=== PATIENT | male | born 1975 | race Caucasian/White ===

== ENCOUNTER 2017-11-30 03:25 | Emergency (ER) | payer OTHER ==
[2017-11-30] MEDS ORDERED: CHLORHEXIDINE GLUCONATE 4 % 15 ML UD TOP ONE (03:35)
[2017-11-30] MEDS ORDERED: LIDOCAINE 1% 50 ML VIAL INJ ONE (03:42)
[2017-11-30] MEDS ORDERED: TETANUS,DIPHTHERIA,PERTUSSIS 1 EA SYG IM ONE (03:50)
[2017-11-30 04:01] VITALS: BP 141/95; TEMP 97.8
--- NOTE | 2017-11-30 04:07 | ED.PDOC ---
History of Present Illness - General Chief Complaint: Laceration Stated Complaint: lace to left leg Time Seen by Provider: 11/30/17 04:04 Source: patient Exam Limitations: no limitations - History of Present Illness Initial Comments: LACERATION TO THE LEFT PRE-TIBIAL AREA. WAS WALKING AND INJURED WITH A SHEET METAL, NOW SUSTAINS A LAC TO THE LEFT LEG. Timing/Duration: just prior to arrival Location: extremities Improving Factors: nothing Worsening Factors: nothing Associated Symptoms: denies symptoms Allergies/Adverse Reactions: Allergies Amoxicillin Allergy (Verified 08/25/15 15:44) Home Medications: Ambulatory Orders Lionel/Poly/Hc Otic Susp [Cortisporin Otic Susp] 4 drop BOTH_EARS Q6H #10 days 09/02 Azithromycin [Zithromax Z-Capo] 1 ea PO DAILY #1 pack 02/14/16 Lionel/Poly/Hc Otic Susp [Cortisporin Otic Susp] 4 drop BOTH_EARS Q6HR 10 Days drops 02/14/16 Sulfa/Trimeth 800/160 (Ds) Tab [Bactrim DS] 1 tablet PO DAILY #20 tablet Tramadol HCl 50 mg PO Q6HRS #20 tab 11/30/17 Review of Systems - Review of Systems Constitutional: States: no symptoms reported EENTM: States: no symptoms reported Respiratory: States: no symptoms reported Cardiology: States: no symptoms reported Gastrointestinal/Abdominal: States: no symptoms reported Genitourinary: States: no symptoms reported Musculoskeletal: States: other - LACERATION Skin: States: lesions Neurological: States: no symptoms reported Endocrine: States: no symptoms reported All other Systems: Reviewed and Negative Past Medical History (General) - Patient Medical History Hx Seizures: No Hx Stroke: No Hx Dementia: No Hx Asthma: No Hx of COPD: No Hx Cardiac Disorders: No Hx Congestive Heart Failure: No Hx Pacemaker: No Hx Hypertension: Yes Hx Thyroid Disease: No Hx Diabetes: No Hx Gastroesophageal Reflux: No Hx Renal Disease: No Hx Cancer: No Hx of HIV: No Hx MRSA: No Hx Other PMH: Yes - RIGHT PROSTHETIC EYE - Vaccination History Hx Tetanus, Diphtheria Vaccination: No Hx Influenza Vaccination: No Hx Pneumococcal Vaccination: No - Social History Hx Tobacco Use: No Hx Alcohol Use: Yes Hx Substance Use: No Hx Depression: No - Female History Patient is a Female of Child Bearing Age (10 -59 yrs old): No Patient : No Family Medical History - Family History Father Family History: Unknown Living Status: Unknown Physical Exam - Physical Exam General Appearance: Alert, Well Developed, Well Hydrated, Well Nourished Eyes, Ears, Nose, Throat Exam: normal ENT inspection Neck: non-tender, full range of motion, supple Cardiovascular/Chest: normal peripheral pulses, regular rate, rhythm, no edema, no gallop, no JVD Respiratory: chest non-tender, lungs clear, normal breath sounds, no respiratory distress, no accessory muscle use Gastrointestinal/Abdominal: normal bowel sounds, non tender, soft, no organomegaly Back Exam: normal inspection Extremity: other - DEEP LACERATION TO THE LEFT PRE TIBIAL AREA, 10 CM Neurologic: no motor/sensory deficits, alert, normal mood/affect, oriented x 3 Skin Problem Location: lower extremities Lymphatic: no adenopathy Procedures - Laceration/Wound Repair Left Lower Anterior Knee Wound Length (cm): 12 Wound's Depth, Shape: into muscle, irregular Wound Explored: no foreign body removed Irrigated w/ Saline (cc's): 1,000 Betadine Prep?: No - HIBICLENS Anesthesia: 1% Lidocaine Volume Anesthetic (cc's): 10 Wound Debrided: moderate Wound Repaired With: sutures Suture Size/Type: 3:0, nylon Number of Sutures: 10 Layer Closure?: Yes Deep Layer Suture Size/Type: 3:0, vicryl Number Deep Layer Sutures: 5 Sterile Dressing Applied?: Yes Splint Applied?: No Departure - Departure Clinical Impression: Lower leg laceration with complication Qualifiers: Encounter type: initial encounter Laterality: left Qualified Code(s): S81.812A - Laceration without foreign body, left lower leg, initial encounter Time of Disposition: 04:14 Disposition: Discharge to Home or Self Care Condition: Fair Departure Forms: ED Discharge - Pt. Copy, Patient Portal Self Enrollment Instructions: DI for Laceration Repair, How to Care for a Laceration After Repair Diet: resume usual diet Referrals: Eduardo Ward MD [Family Provider] - 1-2 Weeks Prescriptions: Tramadol HCl 50 mg PO Q6HRS #20 tab Sulfa/Trimeth 800/160 (Ds) Tab [Bactrim DS] 1 tablet PO DAILY #20 tablet Home Medications: Ambulatory Orders Lionel/Poly/Hc Otic Susp [Cortisporin Otic Susp] 4 drop BOTH_EARS Q6H #10 days 09/02 Azithromycin [Zithromax Z-Capo] 1 ea PO DAILY #1 pack 02/14/16 Lionel/Poly/Hc Otic Susp [Cortisporin Otic Susp] 4 drop BOTH_EARS Q6HR 10 Days drops 02/14/16 Sulfa/Trimeth 800/160 (Ds) Tab [Bactrim DS] 1 tablet PO DAILY #20 tablet Tramadol HCl 50 mg PO Q6HRS #20 tab 11/30/17
[2017-11-30] MEDS ORDERED: NEOMYCIN-BACITRACIN-POLYMYXIN 0.9 GM UD TOP ONE (04:12)
[2017-11-30] MEDS ORDERED: IBUPROFEN 200 MG TAB ONE (04:21)
[2017-11-30] MEDS ORDERED: IBUPROFEN 200 MG TAB PO ONE (04:25)
[2017-11-30 04:27] VITALS: O2SAT 97
== END 2017-11-30 04:27 | disposition home or self-care (01) ==
LOC: ER 03:25
DX: S81.812A Laceration without foreign body, left lower leg, initial encounter (principal); I10 Essential (primary) hypertension; Z23 Encounter for immunization; W45.8XXA Other foreign body or object entering through skin, initial encounter; Y93.01 Activity, walking, marching and hiking; Z88.0 Allergy status to penicillin; Y92.9 Unspecified place or not applicable

== ENCOUNTER 2019-11-23 18:53 | Emergency (ER) | payer OTHER ==
[2019-11-23] MEDS ORDERED: SODIUM CHLORIDE 0.9% (FLUSH) 10 ML SYG IV PRN (19:05)
[2019-11-23] MEDS ORDERED: SODIUM CHLORIDE 0.9% 1000ML 1,000 ML IVS ONE ×2 (19:06→19:33)
--- NOTE | 2019-11-23 19:10 | ED.PDOC ---
History of Present Illness - General Time Seen by Provider: 11/23/19 19:05 Source: patient - History of Present Illness Initial Comments: 43-year-old male with past medical history of rectal cancer on chemotherapy, methamphetamine abuse who is brought in by EMS from home for chief complaint of chest pain. Patient admits to ingesting and smoking methamphetamines last night but denies any use today. He reports he was having "spiritual conversations" w ith his daughter and her friend at home when he suddenly began having pain in his chest. Describes as "like someone is squeezing my heart with a vice transverse abdominal muscle surgeon," constant, 11/27 severity, unknown exacerbating factors, no medications taken for relief at home, was given nitroglycerin p.o. x3 via EMS in route but reports no relief. He additionally reports fevers, chills, cough, dyspnea, headache, sore throat, nausea with one episode of nonbloody nonbilious emesis this morning. EMS reported that patient appeared high on stimulant drugs upon their arrival. He was noted to be hypertensive and tachycardic. He had some nonspecific T wave changes on EKG in route. Patient seen by [facility] in [place]. The patient's last chemo treatment was 3 days ago. Allergies/Adverse Reactions: Allergies Amoxicillin Allergy (Verified 08/25/15 15:44) Home Medications: Ambulatory Orders Lionel/Poly/Hc Otic Susp [Cortisporin Otic Susp] 4 drop BOTH_EARS Q6H #10 days 08/25/15 Azithromycin [Zithromax Z-Capo] 1 ea PO DAILY #1 pack 02/14/16 Lionel/Poly/Hc Otic Susp [Cortisporin Otic Susp] 4 drop BOTH_EARS Q6HR 10 Days drops 02/14/16 Sulfa/Trimeth 800/160 (Ds) Tab [Bactrim DS] 1 tablet PO DAILY #20 tablet 11/30/17 Tramadol HCl 50 mg PO Q6HRS #20 tab 11/30/17 Review of Systems - Review of Systems Review of Systems: 11/23/19 19:10 as per HPI All other Systems: Reviewed and Negative Past Medical History (General) - Patient Medical History Hx Seizures: No Hx Stroke: No Hx Dementia: No Hx Asthma: No Hx of COPD: No Hx Cardiac Disorders: No Hx Congestive Heart Failure: No Hx Pacemaker: No Hx Hypertension: Yes Hx Thyroid Disease: No Hx Diabetes: No Hx Gastroesophageal Reflux: No Hx Renal Disease: No Hx Cancer: No Hx of HIV: No Hx MRSA: No - Vaccination History Hx Tetanus, Diphtheria Vaccination: No Hx Influenza Vaccination: No Hx Pneumococcal Vaccination: No - Social History Hx Tobacco Use: No Hx Alcohol Use: Yes Hx Substance Use: No Hx Depression: No - Female History Patient : No Family Medical History - Family History Father Family History: Unknown Living Status: Unknown Physical Exam - Physical Exam General Appearance: Alert, Anxious, Unkempt Eye Exam: right other - false eye, left abnormal pupil - moderately dilated and reactive to light Ears, Nose, Throat: hearing grossly normal, normal ENT inspection, normal pharynx Neck: non-tender, full range of motion, supple, normal inspection Respiratory: chest non-tender, lungs clear, normal breath sounds, no respiratory distress, no accessory muscle use Cardiovascular/Chest: normal peripheral pulses, no edema, no gallop, no JVD, no murmur, tachycardia Peripheral Pulses: radial,right: 2+, radial,left: 2+ Gastrointestinal/Abdominal: non tender, soft, no organomegaly Back Exam: normal inspection, no CVA tenderness Extremity: normal range of motion, non-tender, normal inspection, no pedal edema, no calf tenderness 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 Consider also ACS, pneumonia, COVID-19, sepsis, metastatic cancer, chemotherapy side effects, dehydration, metabolic derangement, other -Obtain cardiac and sepsis work-ups -2 L normal saline bolus 11/24/19 23:10 -I was informed by nursing staff that the patient signed out AGAINST MEDICAL ADVICE before his complete ED work-up could be done. He was also restless while in the ED and pulled out his IV numerous times. His ER cardiac work-up was pretty unremarkable. I suspect that his chest pain was largely due to his methamphetamine abuse. Onofre Hernandez MD Billing #[id number] 11/23/19 19:15 EKG STAT 11/23/19 19:25 STREP A SCREEN CULTURE Stat 11/23/19 19:55 BLOOD CULTURE Stat 11/23/19 20:45 EKG STAT Laboratory Results - last 24 hr 11/23/19 11/23/19 11/23/19 19:25 19:55 19:55 WBC 5.7 RBC 4.08 L Hgb 13.6 L Hct 38.4 L MCV 94.3 H MCH 33.4 H MCHC 35.4 RDW 12.8 Plt Count 175 MPV 7.2 L Absolute Neuts (auto) 4.20 Absolute Lymphs (auto) 1.10 Absolute Monos (auto) 0.20 Absolute Eos (auto) 0.10 Absolute Basos (auto) 0.10 Neutrophils % 74.3 Lymphocytes % 19.0 L Monocytes % 3.3 Eosinophils % 1.3 Basophils % 2.1 H PT 9.7 INR 0.98 PTT (SP) 24.5 D-Dimer, Quantitative 221.0 Sodium Potassium Chloride Carbon Dioxide Anion Gap BUN Creatinine BUN/Creatinine Ratio Random Glucose Serum Osmolality Lactic Acid Calcium Total Bilirubin AST ALT Alkaline Phosphatase Troponin I B-Natriuretic Peptide Serum Total Protein Albumin Globulin Albumin/Globulin Ratio Salicylates Acetaminophen Ethyl Alcohol Group A Strep Rapid Negative 11/23/19 11/23/19 11/23/19 19:55 19:55 19:55 WBC RBC Hgb Hct MCV MCH MCHC RDW Plt Count MPV Absolute Neuts (auto) Absolute Lymphs (auto) Absolute Monos (auto) Absolute Eos (auto) Absolute Basos (auto) Neutrophils % Lymphocytes % Monocytes % Eosinophils % Basophils % PT INR PTT (SP) D-Dimer, Quantitative Sodium 137 Potassium 4.2 Chloride 100 L Carbon Dioxide 27 Anion Gap 14.2 BUN 18 Creatinine 0.88 BUN/Creatinine Ratio 20.5 H Random Glucose 106 H Serum Osmolality 276.1 Lactic Acid 1.4 Calcium 9.4 Total Bilirubin 0.4 AST 17 ALT 15 Alkaline Phosphatase 69 Troponin I < 0.02 B-Natriuretic Peptide < 15.0 Serum Total Protein 7.1 Albumin 4.2 Globulin 2.9 Albumin/Globulin Ratio 1.4 Salicylates Acetaminophen Ethyl Alcohol Group A Strep Rapid 11/23/19 11/23/19 20:00 20:00 WBC RBC Hgb Hct MCV MCH MCHC RDW Plt Count MPV Absolute Neuts (auto) Absolute Lymphs (auto) Absolute Monos (auto) Absolute Eos (auto) Absolute Basos (auto) Neutrophils % Lymphocytes % Monocytes % Eosinophils % Basophils % PT INR PTT (SP) D-Dimer, Quantitative Sodium Potassium Chloride Carbon Dioxide Anion Gap BUN Creatinine BUN/Creatinine Ratio Random Glucose Serum Osmolality Lactic Acid Calcium Total Bilirubin AST ALT Alkaline Phosphatase Troponin I B-Natriuretic Peptide Serum Total Protein Albumin Globulin Albumin/Globulin Ratio Salicylates < 4.0 Acetaminophen < 10.0 L Ethyl Alcohol < 5.40 Group A Strep Rapid - EKG/XRAY/CT EKG: Sinus, Tachy - Heart rate 120, no ST elevations, Q waves noted in inferior leads indicative of possible old MD, axis normal, intervals normal, no prior EKG for comparison. XRAY: chest - no acute processes per my read Departure - Departure Clinical Impression: Methamphetamine abuse Chest pain Qualifiers: Chest pain type: unspecified Qualified Code(s): R07.9 - Chest pain, unspecified Time of Disposition: 23:00 Disposition: Left Against Medical Advice Condition: Fair Departure Forms: ED Discharge - Pt. Copy, Patient Portal Self Enrollment Instructions: DI for Chest Pain Diet: low salt diet Home Medications: Ambulatory Orders Lionel/Poly/Hc Otic Susp [Cortisporin Otic Susp] 4 drop BOTH_EARS Q6H #10 days 08/25/15 Azithromycin [Zithromax Z-Capo] 1 ea PO DAILY #1 pack 02/14/16 Lionel/Poly/Hc Otic Susp [Cortisporin Otic Susp] 4 drop BOTH_EARS Q6HR 10 Days drops 02/14/16 Sulfa/Trimeth 800/160 (Ds) Tab [Bactrim DS] 1 tablet PO DAILY #20 tablet 11/30/17 Tramadol HCl 50 mg PO Q6HRS #20 tab 11/30/17
[2019-11-23 19:19] VITALS: TEMP 97.9
--- NOTE | 2019-11-23 19:42 | RAD ---
EXAM: Chest,1 View CLINICAL INDICATION: 43-year-old male with chest pain. TECHNIQUE: Single view, AP portable chest was obtained. COMPARISON: None. FINDINGS: Unremarkable cardiac and mediastinal silhouette. Heart size is normal. LEFT chest wall port catheter tip terminates at the SVC RIGHT atrial junction. Lungs are clear without focal opacity, pneumothorax or pleural effusions. The visualized bones are within normal limits. IMPRESSION: No acute cardiopulmonary abnormalities. Electronically signed by: Laura Pond MD 11/23/2019 7:40 PM CDT
[2019-11-23 20:22] VITALS: BP 158/98; O2SAT 95
== END 2019-11-23 20:57 | disposition left against medical advice (07) ==
LOC: ER 18:53
DX: R07.9 Chest pain, unspecified (principal); F15.10 Other stimulant abuse, uncomplicated; R00.0 Tachycardia, unspecified; I10 Essential (primary) hypertension; C20 Malignant neoplasm of rectum; Z53.29 Procedure and treatment not carried out because of patient's decision for other reasons; Z79.899 Other long term (current) drug therapy; Z88.1 Allergy status to other antibiotic agents; Z92.21 Personal history of antineoplastic chemotherapy
CPT/HCPCS: 36415; 71045; 80053; 80320; 80329; 83605; 83880; 84484; 85025; 85379; 85610; 85730; 87040; 87070; 87880; 93005; J7030

== ENCOUNTER 2019-12-04 03:40 | Emergency (ER) | payer OTHER ==
--- NOTE | 2019-12-04 04:30 | ED.PDOC ---
History of Present Illness - General Chief Complaint: Behavioral / Psych Stated Complaint: medical clearance Time Seen by Provider: 12/04/19 04:02 Source: patient Exam Limitations: no limitations - History of Present Illness Initial Comments: The patient is a 43-year-old male presented emergency room in police custody secondary to bizarre behavior. The patient has a history of rectal cancer and is undergone seven months of chemotherapy. Denies any suicide attempts in the past. He reports that he has been sleeping adequately. Over the last week he reports that he has been talking out loud to [place] and has felt better than he has in the last year. He reports that his daughter had a suicide attempt a couple of weeks ago by cutting her wrist. She is apparently doing okay now. The officer that brought a man is apparently a friend and he has had several months of bizarre behavior including being convinced there was someone in his attic to the point of calling his police for him to bring a thermal scanner to scan the attic. His police friend has seen the patient be convinced several times that there is someone on his security camera when there was not someone there. Zak apparently the patient, with his daughter in the room imitated pulling a gun from underneath the pillow and shooting himself in the head in front of her. He is apparently mentioned killing himself multiple times to his friends recently. The office will bring him in tonight reports that while he was there he went into the bathroom and wrapped a towel around his hand to make it look like he had a gun and then walked past the officer, and was mad that he did not shoot him because it looked like he was a danger to the officer. Apparently the mother of the daughter feels that his daughter is no longer safe staying with him until he gets help for this behavior. The patient was seen here 9 days ago for bizarre behavior and was felt to be on some form of a stimulant medication. The patient however left AGAINST MEDICAL ADVICE before work-up could be completed. When asked about illicit drug use the patient does report taking Gummies on occasion. He also reports that he had 4-5 beers tonight. Associations in conversation with the patient do seem to be fairly loose. The patient tries to joke but the jokes are fairly inappropriate. When asked about his medical history, what happened to his eye, he reports that he scooped out with a lester sputum, when in fact it was from a wood chopping accident. He reports that his treatment for his cancer is going well. CBC, CMP and cardiac enzymes done 9 days ago are grossly within normal limits. The patient is highly reluctant about giving more blood work at this point in time. The patient denies significant coronavirus exposure or symptoms at this time. Timing/Duration: getting worse, other - Several months Improving Factors: nothing Worsening Factors: nothing Associated Symptoms: denies symptoms Allergies/Adverse Reactions: Allergies Amoxicillin Allergy (Verified 08/25/15 15:44) Home Medications: Ambulatory Orders Gabapentin 100 mg PO TID 12/04/19 Ondansetron HCl [Zofran] 8 mg PO Q8H PRN 12/04/19 Venlafaxine HCl [Venlafaxine HCl ER] 37.5 mg PO DAILY 12/04/19 Review of Systems - Review of Systems Constitutional: States: no symptoms reported EENTM: States: see HPI Respiratory: States: no symptoms reported Cardiology: States: no symptoms reported Gastrointestinal/Abdominal: States: no symptoms reported Genitourinary: States: no symptoms reported Musculoskeletal: States: no symptoms reported Skin: States: no symptoms reported Neurological: States: see HPI Endocrine: States: no symptoms reported All other Systems: No Change from Baseline Past Medical History (General) - Patient Medical History Hx Seizures: No Hx Stroke: No Hx Dementia: No Hx Asthma: No Hx of COPD: No Hx Cardiac Disorders: No Hx Congestive Heart Failure: No Hx Pacemaker: No Hx Hypertension: No Hx Thyroid Disease: No Hx Diabetes: No Hx Gastroesophageal Reflux: No Hx Renal Disease: No Hx Cancer: Yes - [place] and Rectal Hx of HIV: No Hx Hepatitis C: No Hx MRSA: No Surgical History: other - Vaccination History Hx Tetanus, Diphtheria Vaccination: No Hx Influenza Vaccination: Yes Hx Pneumococcal Vaccination: No - Social History Hx Tobacco Use: No Hx Chewing Tobacco Use: No Hx Alcohol Use: Yes Hx Substance Use: Yes Hx Substance Use Treatment: No Hx Depression: No Feels Threatened In Home Enviroment: No Feels Threatened In a Relationship: No Hx Physical Abuse: No Hx Emotional Abuse: No Hx Suspected Abuse: No - Female History Patient is a Female of Child Bearing Age (10 -59 yrs old): No Patient : No - Triage Comment ED Triage Comment: The patient was alert and oriented and had no noted complaints at the time of contact. He was in custody and medical clearance was being requested by [facility] to have the [facility]. 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., left normal Ears, Nose, Throat: hearing grossly normal, normal pharynx Neck: non-tender, supple Respiratory: lungs clear, normal breath sounds, no respiratory distress, no a ccessory muscle use Cardiovascular/Chest: normal peripheral pulses, regular rate, rhythm, no edema Peripheral Pulses: radial,right: 2+, radial,left: 2+ Gastrointestinal/Abdominal: non tender, soft Rectal Exam: deferred Extremity: normal range of motion, non-tender, normal inspection, no pedal edema, normal capillary refill 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 Associations are loose. Skin Exam: normal color Comments: Vital Signs - 24 hr 12/04/19 03:48 Temperature 97.5 F L Pulse Rate [ 89 Pulse Ox] Respiratory 15 Rate Blood Pressure 150/117 [Left Arm] O2 Sat by Pulse 99 Oximetry Progress - Progress Progress: 12/04/19 05:[address] shows no acute intracranial pathology. He does have what appears to be mild chronic left maxillary sinus inflammation. 12/04/19 05:33 Assessment plan: Patient is a 43-year-old male presenting to the emergency room in police custody secondary to bizarre behavior over the last couple of months, culminating tonight and simulating the act of shooting himself in the head and apparently attempting to get his police lieutenant patrol friend him to shoot him. He does appear that he has had significant paranoia over the last 3 months as well as possibly an episode or 2 of mild visual hallucinations. The patient did cooperate with a head CT here today which was reassuring given his history of the rectal cancer. The patient however refused to cooperate with blood draw or urine sample. He did admit to moderate alcohol intake earlier in the night. Compliance of medications is dubious at this point. I do believe the patient represents a valid risk to himself and possibly other people at this point. The patient has been accepted at [facility] for further evaluation. Vital signs have remained stable. Transferring for specialty care. [email or web address] [email or web address] [phone] - Results/Orders Results/Orders: Lab work from his visit here 9 days ago will be forwarded. Departure - Departure Clinical Impression: Destructive behavior disorder, Alcohol abuse Disposition: Transfer to [facility] Condition: Fair Departure Forms: ED Discharge - Pt. Copy, Patient Portal Self Enrollment Instructions: DI for Psychosis Home Medications: Ambulatory Orders Gabapentin 100 mg PO TID 12/04/19 Ondansetron HCl [Zofran] 8 mg PO Q8H PRN 12/04/19 Venlafaxine HCl [Venlafaxine HCl ER] 37.5 mg PO DAILY 12/04/19 Transfer to Outside Facility - Transfer Information Decision to Transfer Date: 12/04/19 Decision to Transfer Time: 05:37 Reason for Transfer: specialized care not available Accepting Facility: [facility]
--- NOTE | 2019-12-04 05:28 | CT ---
CLINICAL HISTORY: ams, hx rectal cancer COMPARISON: None. TECHNIQUE: CT HEAD WITHOUT IV CONTRAST on 12/04/2019 4:19 AM CDT This exam was performed according to our departmental dose-optimization program, which includes automated exposure control, adjustment of the mA and/or kV according to patient size and/or use of iterative reconstruction technique. FINDINGS: There is no acute hemorrhage, mass effect or midline shift. Rojas-white differentiation is preserved. There is no hydrocephalus. There is no significant volume loss for age. The calvarium is intact. 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 There is moderate thickening of the left maxillary sinus. Mastoid air cells are clear. IMPRESSION: No acute intracranial findings. Electronically signed by: Torin Rico MD 12/04/2019 5:26 AM CDT
[2019-12-04 12:47] VITALS: BP 152/105; TEMP 96.9; O2SAT 99
== END 2019-12-04 12:46 ==
LOC: ER 03:40
DX: F91.9 Conduct disorder, unspecified (principal); F10.10 Alcohol abuse, uncomplicated; Y90.6 Blood alcohol level of 120-199 mg/100 ml; R45.851 Suicidal ideations; C20 Malignant neoplasm of rectum; Z79.899 Other long term (current) drug therapy